=== PATIENT | female | born 2000 ===

== ENCOUNTER 2021-08-14 18:34 | Inpatient (IN) ==
[2021-08-14 19:55] LABS: ABS Eosinophils 0.1 10^3/ul (0-0.6); ABS Lymphocytes 2.6 10^3/ul (1.0-4.8); ABS Monocytes 0.5 10^3/ul (0-0.8); ABS Neutrophils 5.8 10^3/ul (1.5-7.7); Eosinophil % 0.7 %; Hematocrit 38 % (35-47); Hemoglobin 12.9 g/dL (12.0-16.0); Mean Corpuscular HGB Conc 34 g/dL (31-36); Mean Corpuscular Hemoglobin 32 pg (27-31); Mean Corpuscular Volume 93 fL (80-97); Mean Platelet Volume 6.7 fL (7.4-10.4); Platelet Count 326 10^3/uL (150-450); Red Blood Count 4.08 10^6 /uL (3.70-4.87); Red Cell Distribution Width 13 % (10-15)
[2021-08-14 19:57] LABS: Urine Appearance Clear; Urine Bilirubin Negative (Negative); Urine Blood Negative (Negative); Urine Color Yellow; Urine Glucose Negative (Negative); Urine Ketones Negative (Negative); Urine Nitrite Negative (Negative); Urine Protein Negative (Negative); Urine Specific Gravity 1.023 (1.002-1.030); Urine Urobilinogen Negative (Negative)
[2021-08-14 20:07] LABS: Urine Benzodiazepine Screen None Detected (None Detect); Urine Cannabinoids Screen None Detected (None Detect); Urine Opiates Screen None Detected (None Detect)
[2021-08-14 20:24] LABS: ALT 18 U/L (7-52); AST 16 U/L (13-39); Acetaminophen < 15 mcg/mL; Albumin 4.4 g/dL (3.2-5.2); Albumin/Globulin Ratio 1.8 (1-3); Alcohol, S < 13 mg/dL (<13); Alkaline Phosphatase 41 U/L (35-149); Anion Gap 6 mmol/L (2-11); Blood Urea Nitrogen 15 mg/dL (6-24); CO2 Carbon Dioxide 27 mmol/L (22-32); Calcium 8.9 mg/dL (8.6-10.3); Chloride 108 mmol/L (101-111); Globulin 2.5 g/dL (2-4); Glucose 114 mg/dL (70-100); Potassium 3.8 mmol/L (3.5-5.0); Salicylate < 2.50 mg/dL (<30); Sodium 141 mmol/L (135-145); Total Protein 6.9 g/dL (6.4-8.9); eGFR CKD-EPI 95.1 (>60)
[2021-08-14 20:39] LABS: TSH Ultra Thyroid Stim Horm 1.37 mcIU/mL (0.34-5.60)
[2021-08-14] MEDS ORDERED: Al Hydrox/Mg Hydrox/Simet LIQ 30 ML UDC PO PRN (22:00)
[2021-08-15] MEDS: Vitamin THERAPEUTIC TAB PO SCH (12:05)
[2021-08-16 07:56] LABS: Cholesterol 131 mg/dL; HDL Cholesterol 64.5 mg/dL; LDL Cholesterol 42 mg/dL; Triglycerides 123 mg/dL
[2021-08-16 08:01] LABS: HCG Pregnancy < 0.60 mIU/mL
[2021-08-16] MEDS: Vitamin THERAPEUTIC TAB PO SCH (10:53)
[2021-08-17] MEDS: Vitamin THERAPEUTIC TAB PO SCH (09:14)
[2021-08-18 09:42] VITALS: BP 115/64
[2021-08-18] MEDS: Vitamin THERAPEUTIC TAB PO SCH (09:58)
[2021-08-18] MEDS ORDERED: Lithium Carbonate ER 450mg TAB PO SCH (21:00)
== END 2021-08-18 11:00 | disposition home or self-care (01) | DRG 885 ==
LOC: ED 18:34 → BSU 20:50
PROVIDERS: ADMIT Psychiatry & Neurology Psychiatry; ATTEND Psychiatry & Neurology Psychiatry